=== PATIENT | female | born 1960 | race African-American/Black ===

== ENCOUNTER 2018-06-16 16:26 | Inpatient (IN) | payer OTHER ==
[2018-06-16 19:49] VITALS: BMI 30.2
--- NOTE | 2018-06-16 21:06 | HP ---
CIWA Score Nausea/Vomitin Muscle Tremors: 3 Anxiety: 2 Agitation: 2 Paroxysmal Sweats: 3 (Increased facial moisture) Orientation: 1-Uncertain about Date Tacttile Disturbances: 0-None Auditory Disturbances: 0-None Visual Disturbances: 0-None Headache: 2-Mild CIWA-Ar Total Score: 16 - Admission Criteria OASAS Guidelines: Admission for Medically Managed Detox: Requires at least one of the followin. CIWA greater than 12 2. Seizures within the past 24 hours 3. Delirium tremens within the past 24 hours 4. Hallucinations within the past 24 hours 5. Acute intervention needed for co occurring medical disorder 6. Acute intervention needed for co occurring psychiatric disorder 7. Severe withdrawal that cannot be handled at a lower level of care (continued vomiting, continued diarrhea, abnormal vital signs) requiring intravenous medication and/or fluids 8. Patient presents the following: CIWA greater than 12 Admission Criteria Met: Admission criteria met Admission ROS [facility] Chief Complaint: Here with alcohol withdrawal. Allergies/Adverse Reactions: Allergies Allergy/AdvReac Type Severity Reaction Status Date / Time No Known Allergies Allergy Verified 06/16/18 20:48 History of Present Illness: Here for detox. States free of alcohol and crack/cocaine use since 2001. States relapsed about 1 month ago after . Alcohol use began at age 13. Cocaine use began at age 22. Marijuana use began at age 13. Nicotine use began at age 13. Denies seizures, black outs, or overdoses. States recently seen by PCP and told had abnormal kidney function test and is to receive a renal ultrasound upon discharge. States hx enlarged lymph nodes on lungs. Had lung biopsy 2 years ago. States coughs all the time. States dropped (L) foot. Wears high top boots for support. (R) ankle weakness r/t fall May 2018. Past hx DM - states controlled w/ past weight loss. MHHx: Mild depression. Denies thoughts of harming self or others. Patient Name: Mateo Garner Date: 1960 Address: [address] [address] Sex: Female Rx Written Rx Dispensed Drug Quantity Days Supply Prescriber Name 01/12/2018 01/16/2018 oxycodone-acetaminophen 5-325 mg tablet 30 5 Lali Harris Exam Limitations: No Limitations - Ebola screening Have you traveled outside of the country in the last 21 days: No (N) Have you had contact with anyone from an Ebola affected area: No Have you been sick,other than usual withdrawal symptoms: No Do you have a fever: No - Review of Systems Constitutional: Changes in sleep (Difficulty falling asleep.) EENT: reports: Blurred Vision, Dental Problems (Wears dentures. Chews and swallows ok.) Respiratory: reports: Cough (Chronic cough.), SOB with Exertion Cardiac: reports: No Symptoms Reported GI: reports: Diarrhea (light brown, watery diarrhea), Nausea, Indigestion (Hx acid reflux states takes before breakfast.) : reports: No Symptoms Reported (Denies burning, pain, or blood w/ urination. States told had abnorma KFT's.) Musculoskeletal: reports: Back Pain (Intermittent LBP r/t slipped disc x 2 years. Pain is positional when lays down on back. Denies pain at this time. States gabapentin helps w/ pain.), Other (States dropped (L) foot. Wears high top boots for support. (R) ankle weakness r/t fall 1 month ago.) Integumentary: reports: No Symptoms Reported Neuro: reports: Headache (Slight), Numbness (Of toes x 2 months. Takes gabapentin 800 mg PO daily, which causes the numbness.) Endocrine: reports: Increased Thirst Hematology: reports: No Symptoms Reported Psychiatric: reports: Judgement Intact, Mood/Affect Appropiate, Agitated, Anxious, Depressed (Denies thoughts of harming self or others.), other ( Oriented to month and year. Unsure of day) Patient History - Patient Medical History Hx Asthma: Yes Hx Chronic Obstructive Pulmonary Disease (COPD): No Hx Cardiac Disorders: No Hx Hypertension: No HX Cerebrovascular Accident: No Hx Seizures: No Hx Diabetes: No Hx Gastrointestinal Disorders: No Hx Genitourinary Disorders: No Hx Sexually Transmitted Disorders: No Hx Renal Disease (ESRD): No Hx Human Immunodeficiency Virus (HIV): No (NEGATIVE SCREEN) Hx Hepatitis C: No Hx Depression: Yes Hx Suicide Attempt: No Hx Schizophrenia: Yes - Patient Surgical History Past Surgical History: No Hx Neurologic Surgery: No Hx Cataract Extraction: No Hx Cardiac Surgery: No Hx Lung Surgery: No Hx Breast Surgery: No Hx Breast Biopsy: No Hx Abdominal Surgery: No Hx Appendectomy: No Hx Cholecystectomy: No Hx Genitourinary Surgery: No Hx Section: Yes (in 1979) Hx Orthopedic Surgery: No Hx Hysterectomy: Yes (PARTIAL IN 1985) Other Surgical History: partial hysterectomy in 1985 Anesthesia Reaction: No - PPD History Previous Implant?: Yes Documented Results: Negative w/proof Implanted On Prior [facility] Admission?: Yes Date: 09/05/11 PPD to be Administered?: Yes - Reproductive History Patient is a Female of Child Bearing Age (11 -55 yrs old): Yes Last Menstrual Period: 04/28/85 Patient : No - Smoking Cessation Smoking history: Current every day smoker Have you smoked in the past 12 months: Yes Aproximately how many cigarettes per day: 10 Hx Chewing Tobacco Use: No Initiated information on smoking cessation: Yes 'Breaking Loose' booklet given: 06/16/18 - Substance & Tx. History Hx Alcohol Use: Yes Hx Substance Use: Yes Substance Use Type: Alcohol Hx Substance Use Treatment: Yes (detox) - Substances Abused Alcohol Route: Oral Frequency: Daily Amount used: 1 BEER + 1 PINT vODKA Age of first use: 13 Date of Last Use: 06/15/18 Crack Route: Smoking Frequency: 3-6 times per week Amount used: $600 Age of first use: 22 Date of Last Use: 06/16/18 Marijuana/Hashish Route: Smoking Frequency: Daily Amount used: 1 BAG Age of first use: 13 Date of Last Use: 06/16/18 Admission Physical Exam [facility] - Vital Signs Vital Signs: Vital Signs - 24 hr 06/16/18 06/16/18 19:47 19:53 Temperature 96.8 F L 96.8 F L Pulse Rate 77 77 Respiratory 18 18 Rate Blood Pressure 146/100 146/100 - Physical General Appearance: Yes: Nourished, Mild Distress, Tremorous, Sweating, Anxious HEENTM: Yes: EOMI, Hearing grossly Normal, Normocephalic, Normal Voice, ALEXANDRA, Pharynx Normal Respiratory: Yes: Lungs Clear, Normal Breath Sounds, No Respiratory Distress Neck: Yes: No masses,lesions,Nodules, Supple Breast: Yes: Breast Exam Deferred Cardiology: Yes: Regular Rhythm, Regular Rate, S1, S2 Abdominal: Yes: Non Tender, Soft, Increased Bowel Sounds Genitourinary: Yes: Within Normal Limits Back: Yes: Normal Inspection Musculoskeletal: Yes: Joint swelling (Slight swelling (R) outer malleolus w/ tenderness. FWB. No increased warmth/ecchimosis.) Extremities: Yes: Normal Capillary Refill, Normal Range of Motion, Tremors ( Mild tremors) Neurological: Yes: rn women services II-XII NML intact, Alert, Motor Strength 5/5, Normal Mood /Affect Integumentary: Yes: Normal Color, Warm, Diaphoresis (Increased facial moisture) - Diagnostic (1) Alcohol dependence with uncomplicated withdrawal Current Visit: Yes Status: Acute (2) Cannabis dependence, uncomplicated Current Visit: Yes Status: Chronic (3) Cocaine dependence, uncomplicated Current Visit: Yes Status: Chronic (4) Nicotine dependence, uncomplicated Current Visit: Yes Status: Chronic Qualifiers: Nicotine product type: cigarettes Qualified Code(s): F17.210 - Nicotine dependence, cigarettes, uncomplicated (5) Essential (primary) hypertension Current Visit: Yes Status: Acute (6) GERD (gastroesophageal reflux disease) Current Visit: Yes Status: Chronic Qualifiers: Esophagitis presence: without esophagitis Qualified Code(s): K21.9 - Gastro -esophageal reflux disease without esophagitis (7) Asthma Current Visit: Yes Status: Chronic Qualifiers: Asthma severity: mild Asthma persistence: unspecified Asthma complication type: uncomplicated Qualified Code(s): J45.909 - Unspecified asthma, uncomplicated (8) Neuropathy Current Visit: Yes Status: Chronic (9) Gait abnormality Current Visit: Yes Status: Chronic Comment: r/t (L) dropped foot and (R) ankle weakness Cleared for Admission [facility] - Detox or Rehab [facility] Level of Care: Medically Managed Detox Regimen/Protocol: Librium S Breath Alcohol Content Breath Alcohol Content: 0 Urine Pregancy Test - Result Urine Test Results: Negative - NO Line Present Urine Drug Screen - Results Drug Screen Negative: No Urine Drug Screen Results: THC-Marijuana, GLADYS-Cocaine Inpatient Rehab Admission - Rehab Decision to Admit Inpatient rehab admission?: No
[2018-06-16] MEDS ORDERED: ACETAMINOPHEN 325 MG TABLET (FP) PO PRN ×2 (22:13)
[2018-06-16] MEDS ORDERED: hydrOXYzine PAMOATE 25 MG CAPSULE (FP) PO PRN (22:13)
[2018-06-16] MEDS ORDERED: chlordiazePOXIDE HCL 10 MG CAPSULE PO PRN (22:13)
[2018-06-16] MEDS ORDERED: METHOCARBAMOL 500 MG TABLET PO PRN (22:13)
[2018-06-16] MEDS ORDERED: chlordiazePOXIDE HCL 25 MG CAPSULE PO ONE (22:13)
[2018-06-16] MEDS ORDERED: guaiFENesin 200 MG/10 ML 10 ML UNIT-DOSE CUPS PO PRN (22:13)
[2018-06-16] MEDS ORDERED: MENTHOL/PHENOL 1 EACH UD MM PRN (22:13)
[2018-06-16] MEDS ORDERED: IBUPROFEN 400 MG TABLET (FP) PO PRN (22:13)
[2018-06-16] MEDS ORDERED: MAGNESIUM HYDROX 2400MG/30ML ORAL SUSPENSION 30 ML CUP PO PRN (22:13)
[2018-06-16] MEDS ORDERED: BISMUTH SUBSALICYLATE 524 MG/30 ML UD PO PRN (22:13)
[2018-06-16] MEDS ORDERED: MAG HYDROX/AL HYDROX/SIMETH 30 ML UNIT-DOSE CUP PO PRN (22:13)
[2018-06-16] MEDS ORDERED: MAGNESIUM CITRATE 300 ML BOTTLE PO PRN (22:13)
[2018-06-16] MEDS ORDERED: ALBUTEROL SO4 0.083% IH SOL 2.5 MG/3 ML VIAL.NEB. NEB PRN (23:15)
[2018-06-16] MEDS: chlordiazePOXIDE HCL 25 MG CAPSULE PO SCH (23:46)
[2018-06-17] MEDS: chlordiazePOXIDE HCL 25 MG CAPSULE PO SCH ×2 (06:07→12:41)
[2018-06-17] MEDS: PANTOPRAZOLE 40 MG TABLET (FP) PO SCH (07:18)
[2018-06-17] MEDS: LOSARTAN POTASSIUM 25 MG TABLET PO SCH (10:39)
[2018-06-17 10:41] LABS: HEMATOCRIT 35.2 % (32.4-45.2); HEMOGLOBIN 11.6 GM/dL (10.7-15.3); MCH 31.3 pg (25.7-33.7); MCHC 32.9 g/dl (32.0-36.0); MEAN PLT VOLUME 11.1 fl (7.5-11.1); PLATELET COUNT 212 K/MM3 (134-434); RBC 3.71 M/mm3 (3.60-5.2); RDW 15.1 % (11.6-15.6); WHITE BLOOD COUNT 7.5 K/mm3 (4.0-10.0)
[2018-06-17] MEDS: NICOTINE 14 MG/24 HOURS TOPICAL PATCH TD SCH (10:45)
[2018-06-17] MEDS: PRENATAL VITAMINS W/ FOLIC ACID TABLET (FP) PO SCH (10:46)
[2018-06-17] MEDS: ASPIRIN COATED 81 MG TABLET.EC PO SCH (10:46)
[2018-06-17 11:07] LABS: ALBUMIN 3.2 g/dl (3.4-5.0); ALK PHOS 105 U/L (45-117); ANION GAP 8 MMOL/L (8-16); BILIRUBIN,TOTAL 0.9 mg/dL (0.2-1); BLOOD UREA NITROGEN 25 mg/dL (7-18); CALCIUM 8.9 mg/dL (8.5-10.1); CHLORIDE 111 mmol/L (98-107); CO2 24 mmol/L (21-32); CREATININE 1.5 mg/dL (0.55-1.3); GLUCOSE,RANDOM 109 mg/dL (74-106); POTASSIUM 4.4 mmol/L (3.5-5.1); SGOT/AST 10 U/L (15-37); SGPT/ALT 12 U/L (13-61); SODIUM 143 mmol/L (136-145)
--- NOTE | 2018-06-17 13:08 | EKG ---
Test Reason : Blood Pressure : / mmHG Vent. Rate : 074 BPM Atrial Rate : 074 BPM P-R Int : 120 ms QRS Dur : 088 ms QT Int : 434 ms P-R-T Axes : 059 069 072 degrees QTc Int : 481 ms NORMAL SINUS RHYTHM BIATRIAL ENLARGEMENT PROLONGED QT ABNORMAL ECG NO PREVIOUS ECGS AVAILABLE Confirmed by MD VIVIENNE, NATACHA ([id number]) on 06/17/2018 1:08:29 PM Referred By: Confirmed By:NATACHA PALAFOX MD
[2018-06-17] MEDS: PATIENT'S OWN MEDICATION (NON-FORMULARY) (Gabapentin [Gabapentin] 800 MG) PO SCH ×3 (13:27→22:32)
[2018-06-17] MEDS: PATIENT'S OWN MEDICATION (NON-FORMULARY) (Omeprazole [Omeprazole] 40 MG) PO SCH (13:27)
--- NOTE | 2018-06-17 16:07 | PN ---
S CIWA - CIWA Score Nausea/Vomitin Muscle Tremors: 3 Anxiety: 3 Agitation: 2 Paroxysmal Sweats: No Perspiration Orientation: 0-Oriented Tacttile Disturbances: 0-None Auditory Disturbances: 1-Very Mild Visual Disturbances: 3-Moderate Sensitivity Headache: 0-None Present CIWA-Ar Total Score: 15 BHS Progress Note (SOAP) Subjective: Tremors, Nausea, Anxious. Objective: PATIENT A & O X 3, OBSERVED AMBULATING ON UNIT. IN NO ACUTE DISTRESS. 06/17/18 16:03 Vital Signs Temperature 98.4 F 06/17/18 14:00 Pulse Rate 74 06/17/18 14:00 Respiratory Rate 18 06/17/18 14:00 Blood Pressure 139/93 06/17/18 14:00 O2 Sat by Pulse Oximetry (%) Laboratory Tests 06/17/18 06/17/18 06/17/18 07:50 07:50 07:50 WBC 7.5 RBC 3.71 Hgb 11.6 Hct 35.2 MCV 95.0 MCH 31.3 MCHC 32.9 RDW 15.1 Plt Count 212 MPV 11.1 Sodium 143 Potassium 4.4 Chloride 111 H Carbon Dioxide 24 Anion Gap 8 BUN 25 H Creatinine 1.5 H Creat Clearance w eGFR 36.05 Random Glucose 109 H Calcium 8.9 Total Bilirubin 0.9 AST 10 L ALT 12 L Alkaline Phosphatase 105 Total Protein 6.0 L Albumin 3.2 L RPR Titer Nonreactive LABS NOTED. Assessment: 06/17/18 16:04 WITHDRAWAL SYMPTOMS. HYPERTENSION. Plan: CONTINUE DETOX. INCREASE DAILY PO FLUID INTAKE. D/C IBUPROFEN AND MAGNESIUM-CONTAINING MEDS. FOR ABNORMAL ADMISSION RENAL LAB VALUES. PATIENT REPORTS THAT HER INTERNAL WHOLESALER (DR. NORMAN) THAT "SHE IS NO LONGER DIABETIC" AND THAT HE INFORMED HER THAT SHE NO LONGER HAD TO TAKE MEDICATION FOR DM. AT PATIENT'S REQUEST, DIET CHANGED FROM LOW NA / LOW CONCENTRATED SWEETS CHANGED TO LOW NA ONLY.
[2018-06-17] MEDS: THIAMINE HCL 100 MG TABLET (FP) PO SCH (22:32)
[2018-06-17] MEDS: chlordiazePOXIDE 5 MG CAPSULE PO SCH (22:32)
[2018-06-17] MEDS: MELATONIN 5 MG TABLETS PO PRN (22:32)
[2018-06-18] MEDS: chlordiazePOXIDE 5 MG CAPSULE PO SCH ×2 (05:57→13:51)
[2018-06-18] MEDS: PATIENT'S OWN MEDICATION (NON-FORMULARY) (Gabapentin [Gabapentin] 800 MG) PO SCH ×3 (05:57→22:27)
[2018-06-18] MEDS: PATIENT'S OWN MEDICATION (NON-FORMULARY) (Omeprazole [Omeprazole] 40 MG) PO SCH (05:57)
[2018-06-18] MEDS: PANTOPRAZOLE 40 MG TABLET (FP) PO SCH (06:35)
[2018-06-18] MEDS: ASPIRIN COATED 81 MG TABLET.EC PO SCH (10:08)
[2018-06-18] MEDS: LOSARTAN POTASSIUM 25 MG TABLET PO SCH (10:08)
[2018-06-18] MEDS: PRENATAL VITAMINS W/ FOLIC ACID TABLET (FP) PO SCH (10:09)
[2018-06-18] MEDS: NICOTINE 14 MG/24 HOURS TOPICAL PATCH TD SCH (10:09)
--- NOTE | 2018-06-18 12:29 | PN ---
[facility] CIWA - CIWA Score Nausea/Vomitin-No Nausea/No Vomiting Muscle Tremors: 3 Anxiety: 2 Agitation: 2 Paroxysmal Sweats: 1-Minimal Palms Moist Orientation: 1-Uncertain about Date Tacttile Disturbances: 0-None Auditory Disturbances: 0-None Visual Disturbances: 0-None Headache: 2-Mild CIWA-Ar Total Score: 11 S Progress Note (SOAP) Subjective: tremor sweating anxiety trouble sleep at night Objective: 06/18/18 12:30 Vital Signs Temperature 98.2 F 06/18/18 09:57 Pulse Rate 71 06/18/18 09:57 Respiratory Rate 18 06/18/18 09:57 Blood Pressure 170/99 06/18/18 09:57 O2 Sat by Pulse Oximetry (%) Laboratory Last Values WBC 7.5 K/mm3 (4.0-10.0) 06/17/18 07:50 RBC 3.71 M/mm3 (3.60-5.2) 06/17/18 07:50 Hgb 11.6 GM/dL (10.7-15.3) 06/17/18 07:50 Hct 35.2 % (32.4-45.2) 06/17/18 07:50 MCV 95.0 fl (80-96) 06/17/18 07:50 MCH 31.3 pg (25.7-33.7) 06/17/18 07:50 MCHC 32.9 g/dl (32.0-36.0) 06/17/18 07:50 RDW 15.1 % (11.6-15.6) 06/17/18 07:50 Plt Count 212 K/MM3 (134-434) 06/17/18 07:50 MPV 11.1 fl (7.5-11.1) 06/17/18 07:50 Sodium 143 mmol/L (136-145) 06/17/18 07:50 Potassium 4.4 mmol/L (3.5-5.1) 06/17/18 07:50 Chloride 111 mmol/L (98-107) H 06/17/18 07:50 Carbon Dioxide 24 mmol/L (21-32) 06/17/18 07:50 Anion Gap 8 MMOL/L (8-16) 06/17/18 07:50 BUN 25 mg/dL (7-18) H 06/17/18 07:50 Creatinine 1.5 mg/dL (0.55-1.3) H 06/17/18 07:50 Creat Clearance w eGFR 36.05 (>60) 06/17/18 07:50 Random Glucose 109 mg/dL (74-106) H 06/17/18 07:50 Calcium 8.9 mg/dL (8.5-10.1) 06/17/18 07:50 Total Bilirubin 0.9 mg/dL (0.2-1) 06/17/18 07:50 AST 10 U/L (15-37) L 06/17/18 07:50 ALT 12 U/L (13-61) L 06/17/18 07:50 Alkaline Phosphatase 105 U/L (45-117) 06/17/18 07:50 Total Protein 6.0 g/dl (6.4-8.2) L 06/17/18 07:50 Albumin 3.2 g/dl (3.4-5.0) L 06/17/18 07:50 RPR Titer Nonreactive (NONREACTIVE) 06/17/18 07:50 lab noted hypertension 06/18/18 12:34 clonidin prn Assessment: 06/18/18 12:34 mild withdrawal sx Laboratory Last Values WBC 7.5 K/mm3 (4.0-10.0) 06/17/18 07:50 RBC 3.71 M/mm3 (3.60-5.2) 06/17/18 07:50 Hgb 11.6 GM/dL (10.7-15.3) 06/17/18 07:50 Hct 35.2 % (32.4-45.2) 06/17/18 07:50 MCV 95.0 fl (80-96) 06/17/18 07:50 MCH 31.3 pg (25.7-33.7) 06/17/18 07:50 MCHC 32.9 g/dl (32.0-36.0) 06/17/18 07:50 RDW 15.1 % (11.6-15.6) 06/17/18 07:50 Plt Count 212 K/MM3 (134-434) 06/17/18 07:50 MPV 11.1 fl (7.5-11.1) 06/17/18 07:50 Sodium 143 mmol/L (136-145) 06/17/18 07:50 Potassium 4.4 mmol/L (3.5-5.1) 06/17/18 07:50 Chloride 111 mmol/L (98-107) H 06/17/18 07:50 Carbon Dioxide 24 mmol/L (21-32) 06/17/18 07:50 Anion Gap 8 MMOL/L (8-16) 06/17/18 07:50 BUN 25 mg/dL (7-18) H 06/17/18 07:50 Creatinine 1.5 mg/dL (0.55-1.3) H 06/17/18 07:50 Creat Clearance w eGFR 36.05 (>60) 06/17/18 07:50 Random Glucose 109 mg/dL (74-106) H 06/17/18 07:50 Calcium 8.9 mg/dL (8.5-10.1) 06/17/18 07:50 Total Bilirubin 0.9 mg/dL (0.2-1) 06/17/18 07:50 AST 10 U/L (15-37) L 06/17/18 07:50 ALT 12 U/L (13-61) L 06/17/18 07:50 Alkaline Phosphatase 105 U/L (45-117) 06/17/18 07:50 Total Protein 6.0 g/dl (6.4-8.2) L 06/17/18 07:50 Albumin 3.2 g/dl (3.4-5.0) L 06/17/18 07:50 RPR Titer Nonreactive (NONREACTIVE) 06/17/18 07:50 lab noted Plan: continue detox
[2018-06-18] MEDS ORDERED: cloNIDine HCL 0.1 MG TABLET PO PRN (12:32)
[2018-06-18] MEDS ORDERED: chlordiazePOXIDE HCL 10 MG CAPSULE PO PRN (21:00)
[2018-06-18] MEDS: THIAMINE HCL 100 MG TABLET (FP) PO SCH (22:26)
[2018-06-18] MEDS: chlordiazePOXIDE HCL 10 MG CAPSULE PO SCH (22:27)
[2018-06-18] MEDS: MELATONIN 5 MG TABLETS PO PRN (22:28)
[2018-06-19] MEDS: chlordiazePOXIDE HCL 10 MG CAPSULE PO SCH (05:46)
[2018-06-19] MEDS: PATIENT'S OWN MEDICATION (NON-FORMULARY) (Omeprazole [Omeprazole] 40 MG) PO SCH (05:47)
[2018-06-19] MEDS: PATIENT'S OWN MEDICATION (NON-FORMULARY) (Gabapentin [Gabapentin] 800 MG) PO SCH (05:47)
[2018-06-19 06:17] VITALS: TEMP 98.4
[2018-06-19 09:11] VITALS: BP 148/103; PULSE 85
[2018-06-19] MEDS: PRENATAL VITAMINS W/ FOLIC ACID TABLET (FP) PO SCH (10:27)
[2018-06-19] MEDS: LOSARTAN POTASSIUM 25 MG TABLET PO SCH (10:27)
[2018-06-19] MEDS: NICOTINE 14 MG/24 HOURS TOPICAL PATCH TD SCH (10:27)
[2018-06-19] MEDS: ASPIRIN COATED 81 MG TABLET.EC PO SCH (10:27)
--- NOTE | 2018-06-19 14:21 | DS ---
[facility] Detox Discharge Summary Admission Date: 06/16/18 Discharge Date: 06/19/18 - History Present History: Alcohol Dependence Additional Comments: 57 years old female admitted on 06/16/18 for alcohol withdrawal stabilization completed detox regimen [facility] - Physical Exam Results Vital Signs: Vital Signs Temperature 98.4 F 06/19/18 09:10 Pulse Rate 85 06/19/18 09:10 Respiratory Rate 18 06/19/18 09:10 Blood Pressure 148/103 H 06/19/18 09:10 O2 Sat by Pulse Oximetry (%) Pertinent Admission Physical Exam Findings: alcohol withdrawal sx Laboratory Last Values WBC 7.5 K/mm3 (4.0-10.0) 06/17/18 07:50 RBC 3.71 M/mm3 (3.60-5.2) 06/17/18 07:50 Hgb 11.6 GM/dL (10.7-15.3) 06/17/18 07:50 Hct 35.2 % (32.4-45.2) 06/17/18 07:50 MCV 95.0 fl (80-96) 06/17/18 07:50 MCH 31.3 pg (25.7-33.7) 06/17/18 07:50 MCHC 32.9 g/dl (32.0-36.0) 06/17/18 07:50 RDW 15.1 % (11.6-15.6) 06/17/18 07:50 Plt Count 212 K/MM3 (134-434) 06/17/18 07:50 MPV 11.1 fl (7.5-11.1) 06/17/18 07:50 Sodium 143 mmol/L (136-145) 06/17/18 07:50 Potassium 4.4 mmol/L (3.5-5.1) 06/17/18 07:50 Chloride 111 mmol/L (98-107) H 06/17/18 07:50 Carbon Dioxide 24 mmol/L (21-32) 06/17/18 07:50 Anion Gap 8 MMOL/L (8-16) 06/17/18 07:50 BUN 25 mg/dL (7-18) H 06/17/18 07:50 Creatinine 1.5 mg/dL (0.55-1.3) H 06/17/18 07:50 Creat Clearance w eGFR 36.05 (>60) 06/17/18 07:50 Random Glucose 109 mg/dL (74-106) H 06/17/18 07:50 Calcium 8.9 mg/dL (8.5-10.1) 06/17/18 07:50 Total Bilirubin 0.9 mg/dL (0.2-1) 06/17/18 07:50 AST 10 U/L (15-37) L 06/17/18 07:50 ALT 12 U/L (13-61) L 06/17/18 07:50 Alkaline Phosphatase 105 U/L (45-117) 06/17/18 07:50 Total Protein 6.0 g/dl (6.4-8.2) L 06/17/18 07:50 Albumin 3.2 g/dl (3.4-5.0) L 06/17/18 07:50 RPR Titer Nonreactive (NONREACTIVE) 06/17/18 07:50 lab noted - Treatment Hospital Course: Detox Protocol Followed, Detoxed Safely, Responded well, Discharged Condition Good, Rehab Referral Accepted Patient has Accepted a [facility] Referral to: [facility] - Medication Discharge Medications: Ambulatory Orders Aspirin Coated [Ecotrin -] 81 mg PO DAILY 09/03/11 Fluticasone/Salmeterol [Advair 250-50 Diskus] 1 each IH BID 09/03/11 Omeprazole 40 mg PO DAILY 09/03/11 Gabapentin 800 mg PO TID 06/16/18 Albuterol Sulfate Inhaler - [Ventolin HFA Inhaler -] 2 inh IH Q6H PRN #1 inhaler 06/18/18 Losartan Potassium 25 mg PO DAILY #30 tablet 06/18/18 - Diagnosis (1) Alcohol dependence with uncomplicated withdrawal Status: Acute (2) Essential (primary) hypertension Status: Chronic (3) Asthma Status: Chronic Qualifiers: Asthma severity: mild Asthma persistence: intermittent Asthma complication type: uncomplicated Qualified Code(s): J45.20 - Mild intermittent asthma, uncomplicated (4) GERD (gastroesophageal reflux disease) Status: Chronic Qualifiers: Esophagitis presence: without esophagitis Qualified Code(s): K21.9 - Gastro -esophageal reflux disease without esophagitis (5) Neuropathy Status: Chronic (6) Nicotine dependence, uncomplicated Status: Acute Qualifiers: Nicotine product type: cigarettes Qualified Code(s): F17.210 - Nicotine dependence, cigarettes, uncomplicated - AMA Did Patient Leave Against Medical Advice: No
== END 2018-06-19 12:33 | disposition other institution (70) | DRG 897 ==
LOC: YASAS 16:26 → Y3N 23:04
PROVIDERS: ADMIT Surgery; ATTEND Surgery
PROC: HZ2ZZZZ Detoxification Services for Substance Abuse Treatment (ICD-10-PCS; principal; 2018-06-16)
DX: F10.20 Alcohol dependence, uncomplicated (principal); F14.20 Cocaine dependence, uncomplicated; F12.20 Cannabis dependence, uncomplicated; F17.210 Nicotine dependence, cigarettes, uncomplicated; I10 Essential (primary) hypertension; J45.20 Mild intermittent asthma, uncomplicated; K21.9 Gastro-esophageal reflux disease without esophagitis; G62.9 Polyneuropathy, unspecified; R26.89 Other abnormalities of gait and mobility; M21.371 Foot drop, right foot
CPT/HCPCS: 36415; 80053; 85027; 86593; 93005; 93010; J0735

== ENCOUNTER 2018-06-19 12:04 | Inpatient (IN) | payer OTHER ==
[2018-06-19] MEDS ORDERED: BACITRACIN 0.9 GM PACKET TP ONE (13:49)
[2018-06-19] MEDS ORDERED: MAGNESIUM HYDROX 2400MG/30ML ORAL SUSPENSION 30 ML CUP PO PRN (14:14)
[2018-06-19] MEDS ORDERED: MAG HYDROX/AL HYDROX/SIMETH 30 ML UNIT-DOSE CUP PO PRN (14:14)
[2018-06-19] MEDS ORDERED: MENTHOL/PHENOL 1 EACH UD MM PRN (14:14)
[2018-06-19] MEDS ORDERED: P-EPHED 60MG/TRIPROLIDI 2.5MG TABLET PO PRN (14:14)
[2018-06-19] MEDS ORDERED: NICOTINE POLACRILEX 2 MG GUM BUC PRN (14:14)
[2018-06-19] MEDS ORDERED: IBUPROFEN 400 MG TABLET (FP) PO PRN (14:14)
[2018-06-19] MEDS ORDERED: MAGNESIUM CITRATE 300 ML BOTTLE PO PRN (14:14)
[2018-06-19] MEDS ORDERED: ACETAMINOPHEN 325 MG TABLET (FP) PO PRN (14:14)
[2018-06-19] MEDS ORDERED: guaiFENesin 200 MG/10 ML 10 ML UNIT-DOSE CUPS PO PRN (14:14)
[2018-06-19] MEDS ORDERED: LOPERAMIDE HCL 2 MG CAPSULE PO PRN (14:14)
--- NOTE | 2018-06-19 14:14 | HP ---
[facility] Rehab Assess/Revision - Admission History Admitted to Rehab from: [facility] Date of Admission to Rehab: 06/19/18 - Vital signs Vital Signs: Vital Signs Period Temp Pulse Resp BP Sys/Castillo Pulse Ox Last 24 Hr 97.4 F 80 18 132/87 - Findings Detox History & Physical reviewed: Yes Concur with findings: Yes Comments/Additional Findings: transferred from detox to rehab admission as per protocol Inpatient Rehab Admission - Rehab Decision to Admit Inpatient rehab admission?: Yes - Initial Determination Are CD services needed?: Yes Free of communicable disease: Yes Not in need of hospitalization: Yes - Rehab Admission Criteria Previous failed treatment: Yes Poor recovery environment: Yes Comorbidities: Yes Lacks judgement: No Patient is meeting Inpatient Rehab admission criteria:: Yes
[2018-06-19] MEDS ORDERED: PT OWN MED DRAWER 7, Y5N ONE ×2 (19:58→21:11)
[2018-06-19] MEDS: THIAMINE HCL 100 MG TABLET (FP) PO SCH (21:09)
[2018-06-19] MEDS: PATIENT'S OWN MEDICATION (NON-FORMULARY) (Gabapentin [Gabapentin] 800 MG) PO SCH (21:11)
[2018-06-19] MEDS: MELATONIN 5 MG TABLETS PO PRN (21:11)
[2018-06-19] MEDS ORDERED: RANITIDINE HCL 150 MG TABLET (FP) PO SCH (22:00)
[2018-06-20] MEDS ORDERED: PT OWN MED DRAWER 7, Y5N ONE ×5 (03:23→20:12)
[2018-06-20] MEDS: PATIENT'S OWN MEDICATION (NON-FORMULARY) (Gabapentin [Gabapentin] 800 MG) PO SCH ×3 (06:42→21:18)
[2018-06-20] MEDS ORDERED: PANTOPRAZOLE 40 MG TABLET (FP) PO ONE (07:15)
[2018-06-20] MEDS ORDERED: LOSARTAN POTASSIUM 25 MG TABLET PO SCH (10:00)
[2018-06-20] MEDS ORDERED: ASPIRIN COATED 81 MG TABLET.EC PO SCH (10:00)
[2018-06-20] MEDS: PRENATAL VITAMINS W/ FOLIC ACID TABLET (FP) PO SCH (10:01)
[2018-06-20] MEDS: NICOTINE 14 MG/24 HOURS TOPICAL PATCH TD PRN (10:02)
--- NOTE | 2018-06-20 11:52 | PN ---
[facility] Progress Note Note: PT REQUESTING HER BP MED AND ASPIRIN DOSING TIME CHANGED TO 6:00 A.M INSTEAD OF 10:00 A.M. ALERT O X 3. NAD. OOB AMBULATING WITH STEADY GAIT. Vital Signs (72 hours) 06/19/18 06/20/18 06/20/18 12:48 00:30 03:30 Temperature 97.4 F L Pulse Rate 80 Respiratory 18 18 18 Rate Blood Pressure 132/87 06/20/18 06/20/18 07:01 09:32 Temperature 97.1 F L Pulse Rate 59 L 80 Respiratory 16 Rate Blood Pressure 153/100 151/82 DOSING TIME CHANGED PER PT REQUEST.
[2018-06-20] MEDS: THIAMINE HCL 100 MG TABLET (FP) PO SCH (21:18)
[2018-06-20] MEDS: MELATONIN 5 MG TABLETS PO PRN (21:19)
[2018-06-20] MEDS: ALBUTEROL SO4 8 GM HFA INHALER IH PRN (21:20)
[2018-06-21] MEDS ORDERED: PT OWN MED DRAWER 7, Y5N ONE ×4 (06:53→19:47)
[2018-06-21] MEDS: PATIENT'S OWN MEDICATION (NON-FORMULARY) (Omeprazole [Omeprazole] 40 MG) PO SCH (06:56)
[2018-06-21] MEDS: PATIENT'S OWN MEDICATION (NON-FORMULARY) (Gabapentin [Gabapentin] 800 MG) PO SCH ×3 (06:56→21:53)
[2018-06-21] MEDS: LOSARTAN POTASSIUM 25 MG TABLET PO SCH (06:57)
[2018-06-21] MEDS: ASPIRIN COATED 81 MG TABLET.EC PO SCH (06:57)
[2018-06-21] MEDS: ALBUTEROL SO4 8 GM HFA INHALER IH PRN (06:58)
[2018-06-21] MEDS: PRENATAL VITAMINS W/ FOLIC ACID TABLET (FP) PO SCH (09:42)
[2018-06-21] MEDS: NICOTINE 14 MG/24 HOURS TOPICAL PATCH TD PRN (09:58)
--- NOTE | 2018-06-21 11:07 | PN ---
S Progress Note Note: Client reports hx of seizure, on Kepra. Kepra 500mg BID was ordered, Kepra level also ordered.
--- NOTE | 2018-06-21 14:15 | PN ---
Deb Progress Note Note: Client believed that she was on another HTN medication. Called [facility] in [place]. Confirmed that patient is only on losartan. Advised patient of the same, and she understood and agreed.
--- NOTE | 2018-06-21 14:17 | PN ---
[facility] Progress Note (SOAP) Subjective: Lesion on right side of nose. Client states that she gets them frequently. Objective: Red, raised, central punctum. non-tender. 06/21/18 14:16 Assessment: Boil. 06/21/18 14:16 Plan: Ordered bacitracin, advised to apply with clean hands, not to squeeze boil.
--- NOTE | 2018-06-21 14:27 | PN ---
[facility] Progress Note Note: Patient reports a history of renal hypertension and decreased renal function. Also reports that PCP stated she was pre-diabetic. Advised client to decrease sugar intake and increase activity. Also: will order chemistry, U/A, and fingersticks x 3 days.
[2018-06-21] MEDS: MELATONIN 5 MG TABLETS PO PRN (21:53)
[2018-06-21] MEDS: THIAMINE HCL 100 MG TABLET (FP) PO SCH (21:53)
[2018-06-21] MEDS ORDERED: levETIRAcetam 500 MG TABLET (FP) PO SCH (22:00)
[2018-06-22] MEDS ORDERED: PT OWN MED DRAWER 7, Y5N ONE ×2 (03:27→12:59)
[2018-06-22] MEDS: ASPIRIN COATED 81 MG TABLET.EC PO SCH (06:28)
[2018-06-22] MEDS: LOSARTAN POTASSIUM 25 MG TABLET PO SCH (06:28)
[2018-06-22] MEDS: PATIENT'S OWN MEDICATION (NON-FORMULARY) (Omeprazole [Omeprazole] 40 MG) PO SCH (06:29)
[2018-06-22] MEDS: PATIENT'S OWN MEDICATION (NON-FORMULARY) (Gabapentin [Gabapentin] 800 MG) PO SCH ×3 (06:29→21:17)
[2018-06-22] MEDS: PRENATAL VITAMINS W/ FOLIC ACID TABLET (FP) PO SCH (09:06)
[2018-06-22] MEDS: NICOTINE 14 MG/24 HOURS TOPICAL PATCH TD SCH (09:06)
--- NOTE | 2018-06-22 09:55 | PN ---
S Progress Note (SOAP) Subjective: client with elevated BP on 06/20, 06/21, 06/22. Denies s/s of HTN. States she was on 2 HTN MEDS, but PCP stopped one and she does not remember the name. Objective: 06/22/18 09:55 No s/s of HTN, however Bp elevated. 06/22/18 09:56 Vital Signs (72 hours) 06/19/18 06/20/18 06/20/18 12:48 00:30 03:30 Temperature 97.4 F L Pulse Rate 80 Respiratory 18 18 18 Rate Blood Pressure 132/87 06/20/18 06/20/18 06/21/18 07:01 09:32 00:30 Temperature 97.1 F L Pulse Rate 59 L 80 Respiratory 16 18 Rate Blood Pressure 153/100 151/82 06/21/18 06/21/18 06/21/18 03:30 07:45 10:00 Temperature 97.8 F Pulse Rate 69 122 H Respiratory 18 18 Rate Blood Pressure 155/98 123/86 06/22/18 06/22/18 06/22/18 03:30 07:17 09:22 Temperature 97.8 F Pulse Rate 69 84 Respiratory 18 18 Rate Blood Pressure 167/95 153/83 Assessment: 06/22/18 09:55 HTN Plan: Started on HCTZ 12.5 mg. Instructed RN to check BP 1 hour after administration.
--- NOTE | 2018-06-22 09:59 | PN ---
[facility] Progress Note Note: right foot swelling. NO s/s of infection. Non-tender to palpation, temperature equal to left, no redness. HCTZ may reduce swelling. Advised to elevate foot and reduce salt intake.
[2018-06-22] MEDS ORDERED: BACITRACIN 15 GM TUBE TOPICAL OINTMENT TP SCH (10:00)
[2018-06-22] MEDS: BACITRACIN 0.9 GM PACKET TP SCH (10:35)
[2018-06-22] MEDS: HYDROCHLOROTHIAZIDE 12.5 MG CAPSULE (FP) PO SCH (10:35)
[2018-06-22 11:14] LABS: EPI CELLS 1.8 /HPF (FEW); HYALINE CASTS 0 /hpf (NEGATIVE); URINE APPEARANCE CLEAR; URINE BACTERIA 45.54 /hpf (NEGATIVE); URINE BILIRUBIN NEGATIVE (<2.0 mg/dL); URINE COLOR YELLOW; URINE GLUCOSE (UA) NEGATIVE (NEGATIVE); URINE KETONE NEGATIVE (NEGATIVE); URINE LEUK ESTERASE NEGATIVE (NEGATIVE); URINE NITRITE NEGATIVE (NEGATIVE); URINE PROTEIN NEGATIVE (NEGATIVE); URINE RBC 0 /hpf (0-3); URINE UROBILINOGEN 0.2 mg/dL (0.2-1.0); URINE WBC 1 /hpf (3-5)
[2018-06-22 11:26] LABS: ANION GAP 5 MMOL/L (8-16); BLOOD UREA NITROGEN 36 mg/dL (7-18); CALCIUM 9.4 mg/dL (8.5-10.1); CHLORIDE 108 mmol/L (98-107); CO2 27 mmol/L (21-32); CREATININE 1.3 mg/dL (0.55-1.3); GLUCOSE,RANDOM 108 mg/dL (74-106); POTASSIUM 4.8 mmol/L (3.5-5.1); SODIUM 140 mmol/L (136-145)
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
[2018-06-22] MEDS: THIAMINE HCL 100 MG TABLET (FP) PO SCH (21:16)
[2018-06-22] MEDS: MELATONIN 5 MG TABLETS PO PRN (21:17)
[2018-06-22] MEDS: QUEtiapine FUMARATE 100 MG TABLET (FP) PO SCH (21:18)
[2018-06-23] MEDS: PATIENT'S OWN MEDICATION (NON-FORMULARY) (Gabapentin [Gabapentin] 800 MG) PO SCH ×3 (06:30→21:50)
[2018-06-23] MEDS: PATIENT'S OWN MEDICATION (NON-FORMULARY) (Omeprazole [Omeprazole] 40 MG) PO SCH (06:30)
[2018-06-23] MEDS: LOSARTAN POTASSIUM 25 MG TABLET PO SCH (06:30)
[2018-06-23] MEDS: ASPIRIN COATED 81 MG TABLET.EC PO SCH (06:30)
[2018-06-23] MEDS: PRENATAL VITAMINS W/ FOLIC ACID TABLET (FP) PO SCH (10:36)
[2018-06-23] MEDS: NICOTINE 14 MG/24 HOURS TOPICAL PATCH TD SCH (10:36)
[2018-06-23] MEDS: HYDROCHLOROTHIAZIDE 12.5 MG CAPSULE (FP) PO SCH (10:36)
[2018-06-23] MEDS: BACITRACIN 0.9 GM PACKET TP SCH (10:36)
[2018-06-23] MEDS: ALBUTEROL SO4 8 GM HFA INHALER IH PRN (10:37)
[2018-06-23] MEDS ORDERED: cloNIDine HCL 0.1 MG TABLET PO ONE ×2 (13:10→14:45)
[2018-06-23] MEDS ORDERED: ALBUTEROL SO4 0.083% IH SOL 2.5 MG/3 ML VIAL.NEB. NEB PRN (14:23)
[2018-06-23] MEDS ORDERED: PT OWN MED DRAWER 7, Y5N ONE (14:43)
--- NOTE | 2018-06-23 15:01 | PN ---
[facility] Progress Note Note: PATIENT SEEN FOR ELEVATED BLOOD PRESSURE. PATIENT CURRENTLY ON COZAAR 25MG DAILY. PATIENT REPORTS FEELING MILDLY UNSTEADY ON FEET. HAS HX OF LEFT FOOT DROP. ALSO STATES SHE HAS BEEN TREATED WITH 3 BP MEDICATIONS BY PCP DR. JENN MORRIS. PCP OFFICE CALLED AT [phone]. PATIENT'S MEDICATIONS REPORTED BY NURSE: ASA 81MG DAILY AND COZAAR 25MG DAILY. PATIENT WAS ALSO DX WITH RENAL INSUFFICIENCY AND HAS RENAL SONO PENDING. PATIENT HAS HX OF SMOKING CRACK/ COCAINE, ASTHMA AND GERD. C/O OF EPIGASTRIC CHEST PAIN BUT DENIES LEFT ARM NUMBNESS, JAW PAIN AND NAUSEA. Laboratory Tests 06/20/18 06/21/18 06/22/18 06:00 16:53 06:27 Sodium Potassium Chloride Carbon Dioxide Anion Gap BUN Creatinine Creat Clearance w eGFR POC Glucometer 142 105 Random Glucose Calcium Urine Color Urine Appearance Urine pH Ur Specific [place] Urine Protein Urine Glucose (UA) Urine Ketones Urine Blood Urine Nitrite Urine Bilirubin Urine Urobilinogen Ur Leukocyte Esterase Urine WBC (Auto) Urine RBC (Auto) Urine Casts (Auto) U Epithel Cells (Auto) Urine Bacteria (Auto) HIV 1&2 Antibody Screen Negative HIV P24 Antigen Negative 06/22/18 06/22/18 06/23/18 07:30 08:00 06:33 Sodium 140 Potassium 4.8 Chloride 108 H Carbon Dioxide 27 Anion Gap 5 L BUN 36 H Creatinine 1.3 Creat Clearance w eGFR 42.53 POC Glucometer 110 Random Glucose 108 H Calcium 9.4 Urine Color Yellow Urine Appearance Clear Urine pH 5.0 Ur Specific [place] 1.014 Urine Protein Negative Urine Glucose (UA) Negative Urine Ketones Negative Urine Blood Negative Urine Nitrite Negative Urine Bilirubin Negative Urine Urobilinogen 0.2 Ur Leukocyte Esterase Negative Urine WBC (Auto) 1 Urine RBC (Auto) 0 Urine Casts (Auto) 0 U Epithel Cells (Auto) 1.8 Urine Bacteria (Auto) 45.54 HIV 1&2 Antibody Screen HIV P24 Antigen Vital Signs (72 hours) 06/21/18 06/21/18 06/21/18 00:30 03:30 07:45 Temperature 97.8 F Pulse Rate 69 Respiratory 18 18 18 Rate Blood Pressure 155/98 06/21/18 06/22/18 06/22/18 10:00 03:30 07:17 Temperature 97.8 F Pulse Rate 122 H 69 Respiratory 18 18 Rate Blood Pressure 123/86 167/95 06/22/18 06/23/18 06/23/18 09:22 00:30 03:30 Temperature Pulse Rate 84 Respiratory 18 18 Rate Blood Pressure 153/83 06/23/18 06/23/18 06/23/18 07:33 10:00 12:22 Temperature 97.4 F L Pulse Rate 64 80 73 Respiratory 18 20 20 Rate Blood Pressure 160/108 H 166/118 H 182/136 H 06/23/18 06/23/18 13:00 14:11 Temperature 97.9 F Pulse Rate 85 91 H Respiratory 18 22 H Rate Blood Pressure 170/100 169/107 H PE: ALERT AND ORIENTED X 3 SKIN WARM AND DRY +PERRLA, EOMS INTACT BL NO FACIAL DROOPING OR WEAKNESS NOTED CAR S1S2 RESP CTA BL O2 SATS 98% EXT FULL ROM, LEFT FOOT DROP A/P; ELEVATED BP RENAL INSUFFICIENCY WILL ORDER CLONIDINE 0.1MG X 2 DOSES CONTINUE COZAAR ORDERED REPEAT CMP 06/27/18 EKG NOW: SHOWS NSR ALBUTEROL INHALER ADDED TO REGIMEN FOR SOB CONTINUE TO MONITOR CLINICALLY
[2018-06-23] MEDS: THIAMINE HCL 100 MG TABLET (FP) PO SCH (21:49)
[2018-06-23] MEDS: QUEtiapine FUMARATE 100 MG TABLET (FP) PO SCH (21:50)
[2018-06-23] MEDS: MELATONIN 5 MG TABLETS PO PRN (21:50)
[2018-06-24] MEDS ORDERED: PT OWN MED DRAWER 7, Y5N ONE ×2 (03:24→07:47)
[2018-06-24] MEDS: PATIENT'S OWN MEDICATION (NON-FORMULARY) (Omeprazole [Omeprazole] 40 MG) PO SCH (06:49)
[2018-06-24] MEDS: LOSARTAN POTASSIUM 25 MG TABLET PO SCH (06:49)
[2018-06-24] MEDS: PATIENT'S OWN MEDICATION (NON-FORMULARY) (Gabapentin [Gabapentin] 800 MG) PO SCH ×3 (06:49→21:01)
[2018-06-24] MEDS: ASPIRIN COATED 81 MG TABLET.EC PO SCH (06:49)
[2018-06-24] MEDS: ALBUTEROL SO4 8 GM HFA INHALER IH PRN (06:50)
[2018-06-24] MEDS ORDERED: LISINOPRIL 20 MG TABLET (FP) PO ONE (07:24)
--- NOTE | 2018-06-24 07:37 | PN ---
[facility] Progress Note Note: ASKED TO SEE PATIENT FOR UNCONTROLLED B/P. CLIENT REPORTS HX/O OF HTN BUT NON COMPLAINT WITH MED MGMT FOR OVER A MONTH AFTER HUSBANDS . REPORTS ALL MEDS WAS DC'D BY PCP NOT SURE WHICH ONES SHE WAS ON. RECENTLY RESTARTED ON COZAAR BY HER PCP DUE TO SOME RENAL ISSUES. DENIES C.P., DIZZINESS, VISUAL DISTURBANCES. C /O INTERMITTENT SOB BUT FEELS RELATED TO HX/O ASTHMA IT IS RELIEVED WITH INHALER PRN. CLIENT SEEN IN PROPELLING SELF W/O DIFFICULTY A/O X3 NAD Vital Signs - 24 hr 06/23/18 06/23/18 06/23/18 10:00 12:22 13:00 Temperature Pulse Rate 80 73 85 Respiratory 20 20 18 Rate Blood Pressure 166/118 H 182/136 H 170/100 06/23/18 06/23/18 06/23/18 14:11 15:58 21:44 Temperature 97.9 F Pulse Rate 91 H 82 90 Respiratory 22 H 18 Rate Blood Pressure 169/107 H 143/88 152/88 06/24/18 06/24/18 06/24/18 00:30 03:30 07:32 Temperature 97.4 F L Pulse Rate 70 Respiratory 18 18 18 Rate Blood Pressure 161/103 H Laboratory Tests 06/20/18 06/21/18 06/22/18 06:00 16:53 06:27 Sodium Potassium Chloride Carbon Dioxide Anion Gap BUN Creatinine Creat Clearance w eGFR POC Glucometer 142 105 Random Glucose Calcium Urine Color Urine Appearance Urine pH Ur Specific [place] Urine Protein Urine Glucose (UA) Urine Ketones Urine Blood Urine Nitrite Urine Bilirubin Urine Urobilinogen Ur Leukocyte Esterase Urine WBC (Auto) Urine RBC (Auto) Urine Casts (Auto) U Epithel Cells (Auto) Urine Bacteria (Auto) HIV 1&2 Antibody Screen Negative HIV P24 Antigen Negative 06/22/18 06/22/18 06/23/18 07:30 08:00 06:33 Sodium 140 Potassium 4.8 Chloride 108 H Carbon Dioxide 27 Anion Gap 5 L BUN 36 H Creatinine 1.3 Creat Clearance w eGFR 42.53 POC Glucometer 110 Random Glucose 108 H Calcium 9.4 Urine Color Yellow Urine Appearance Clear Urine pH 5.0 Ur Specific [place] 1.014 Urine Protein Negative Urine Glucose (UA) Negative Urine Ketones Negative Urine Blood Negative Urine Nitrite Negative Urine Bilirubin Negative Urine Urobilinogen 0.2 Ur Leukocyte Esterase Negative Urine WBC (Auto) 1 Urine RBC (Auto) 0 Urine Casts (Auto) 0 U Epithel Cells (Auto) 1.8 Urine Bacteria (Auto) 45.54 HIV 1&2 Antibody Screen HIV P24 Antigen 06/23/18 06/24/18 16:35 06:51 Sodium Potassium Chloride Carbon Dioxide Anion Gap BUN Creatinine Creat Clearance w eGFR POC Glucometer 156 106 Random Glucose Calcium Urine Color Urine Appearance Urine pH Ur Specific [place] Urine Protein Urine Glucose (UA) Urine Ketones Urine Blood Urine Nitrite Urine Bilirubin Urine Urobilinogen Ur Leukocyte Esterase Urine WBC (Auto) Urine RBC (Auto) Urine Casts (Auto) U Epithel Cells (Auto) Urine Bacteria (Auto) HIV 1&2 Antibody Screen HIV P24 Antigen LABS NOTED A- POORLY CONTROLLED HTN P- GIVE LISINOPRIL 40 MG PO NOW START LISINOPRIL 10 MG DAILY STARTING 06/25/18 WILL CHANGE CLONIDINE TO 0.1 MG PO Q8H PRN CONT TO MONITOR CLINICALLY CONSIDER HYDRALAZINE IF UNCHANGED B/P PLAN DISCUSSED WITH CLIENT. AGREES TO CHANGES
[2018-06-24] MEDS ORDERED: LISINOPRIL 10 MG TABLET (FP) PO SCH (10:00)
[2018-06-24] MEDS ORDERED: cloNIDine HCL 0.1 MG TABLET PO SCH (10:00)
[2018-06-24] MEDS: BACITRACIN 0.9 GM PACKET TP SCH (10:11)
[2018-06-24] MEDS: PRENATAL VITAMINS W/ FOLIC ACID TABLET (FP) PO SCH (10:11)
[2018-06-24] MEDS: NICOTINE 14 MG/24 HOURS TOPICAL PATCH TD SCH (10:11)
[2018-06-24] MEDS: QUEtiapine FUMARATE 100 MG TABLET (FP) PO SCH (21:01)
[2018-06-24] MEDS: THIAMINE HCL 100 MG TABLET (FP) PO SCH (21:01)
[2018-06-24] MEDS: MELATONIN 5 MG TABLETS PO PRN (21:01)
[2018-06-25] MEDS: ASPIRIN COATED 81 MG TABLET.EC PO SCH (06:41)
[2018-06-25] MEDS: LOSARTAN POTASSIUM 25 MG TABLET PO SCH (06:41)
[2018-06-25] MEDS: PATIENT'S OWN MEDICATION (NON-FORMULARY) (Omeprazole [Omeprazole] 40 MG) PO SCH (06:41)
[2018-06-25] MEDS: PATIENT'S OWN MEDICATION (NON-FORMULARY) (Gabapentin [Gabapentin] 800 MG) PO SCH ×3 (06:41→21:32)
[2018-06-25] MEDS: cloNIDine HCL 0.1 MG TABLET PO PRN (06:42)
[2018-06-25] MEDS: ALBUTEROL SO4 8 GM HFA INHALER IH PRN (06:43)
[2018-06-25] MEDS: BACITRACIN 0.9 GM PACKET TP SCH (09:19)
[2018-06-25] MEDS: NICOTINE 14 MG/24 HOURS TOPICAL PATCH TD SCH (09:19)
[2018-06-25] MEDS: PRENATAL VITAMINS W/ FOLIC ACID TABLET (FP) PO SCH (09:20)
[2018-06-25] MEDS: LISINOPRIL 10 MG TABLET (FP) PO SCH (09:20)
[2018-06-25] MEDS: QUEtiapine FUMARATE 100 MG TABLET (FP) PO SCH (21:32)
[2018-06-25] MEDS: THIAMINE HCL 100 MG TABLET (FP) PO SCH (21:32)
[2018-06-25] MEDS: MELATONIN 5 MG TABLETS PO PRN (21:33)
[2018-06-26] MEDS: PATIENT'S OWN MEDICATION (NON-FORMULARY) (Gabapentin [Gabapentin] 800 MG) PO SCH (06:40)
[2018-06-26] MEDS: PATIENT'S OWN MEDICATION (NON-FORMULARY) (Omeprazole [Omeprazole] 40 MG) PO SCH (06:40)
[2018-06-26] MEDS: LOSARTAN POTASSIUM 25 MG TABLET PO SCH (06:41)
[2018-06-26] MEDS: cloNIDine HCL 0.1 MG TABLET PO PRN (06:41)
[2018-06-26] MEDS: ASPIRIN COATED 81 MG TABLET.EC PO SCH (06:41)
[2018-06-26] MEDS: ALBUTEROL SO4 8 GM HFA INHALER IH PRN (06:42)
[2018-06-26 07:19] VITALS: TEMP 97.4
[2018-06-26] MEDS ORDERED: PT OWN MED DRAWER 7, Y5N ONE (08:56)
[2018-06-26] MEDS: BACITRACIN 0.9 GM PACKET TP SCH (09:16)
[2018-06-26] MEDS: PRENATAL VITAMINS W/ FOLIC ACID TABLET (FP) PO SCH (09:16)
[2018-06-26] MEDS: LISINOPRIL 10 MG TABLET (FP) PO SCH (09:16)
[2018-06-26] MEDS: NICOTINE 14 MG/24 HOURS TOPICAL PATCH TD SCH (09:16)
--- NOTE | 2018-06-26 09:41 | PN ---
[facility] Progress Note Note: Patient is discharged today. Script for Seroquel 100 mg po HS is electronically transferred to [facility] at [address] [facility] , [place] [address]
[2018-06-26 10:08] VITALS: BP 137/84; PULSE 90
--- NOTE | 2018-06-26 11:21 | PN ---
[facility] Progress Note Note: PT COMPLETED REHAB AND DISCHARGED TODAY.PT MET WITH HER COUNSELOR, MS JEREZ TAWANA AND WAS REFERRED TO [facility]. PT REPORTS SHE HAS PRIMARY CARE PROVIDER, LULU EDUARDO ON [address] [place], [place],[id number] FOR MEDICAL MANAGEMENT. PT REPORTS SHE HAS OWN MEDS. ALSO REPORTS SHE HAS APPOINTMENT WITH RENAL DEPT TODAY WHERE SHE REPORTS SHE WILL BE GOING SOON SHE LEAVES THIS BUILDING. PT IS ALERT O X 3. DENIES S/H/I. Home Medications Medication Instructions Recorded Aspirin Coated [Ecotrin -] 81 mg PO DAILY 09/03/11 Fluticasone/Salmeterol [Advair 1 each IH BID 09/03/11 250-50 Diskus] Omeprazole 40 mg PO DAILY 09/03/11 Gabapentin 800 mg PO TID 06/16/18 Albuterol Sulfate Inhaler - 2 inh IH Q6H PRN #1 inhaler 06/18/18 [Ventolin HFA Inhaler -] Losartan Potassium 25 mg PO DAILY #30 tablet 06/18/18 Quetiapine Fumarate [Seroquel] 100 mg PO HS #30 tablet 06/26/18 Vital Signs (72 hours) 06/23/18 06/23/18 06/23/18 12:22 13:00 14:11 Temperature 97.9 F Pulse Rate 73 85 91 H Respiratory 20 18 22 H Rate Blood Pressure 182/136 H 170/100 169/107 H 06/23/18 06/23/18 06/24/18 15:58 21:44 00:30 Temperature Pulse Rate 82 90 Respiratory 18 18 Rate Blood Pressure 143/88 152/88 06/24/18 06/24/18 06/24/18 03:30 07:32 09:05 Temperature 97.4 F L Pulse Rate 70 85 Respiratory 18 18 18 Rate Blood Pressure 161/103 H 154/85 06/25/18 06/25/18 06/25/18 00:30 03:30 07:33 Temperature 97.1 F L Pulse Rate 70 Respiratory 18 18 16 Rate Blood Pressure 159/109 H 06/25/18 06/26/18 06/26/18 09:31 00:30 03:30 Temperature Pulse Rate 86 Respiratory 18 18 18 Rate Blood Pressure 134/83 06/26/18 06/26/18 07:18 10:00 Temperature 97.4 F L Pulse Rate 78 90 Respiratory 18 Rate Blood Pressure 164/105 H 137/84 Laboratory Tests 06/20/18 06/21/18 06/22/18 06:00 16:53 06:27 Sodium Potassium Chloride Carbon Dioxide Anion Gap BUN Creatinine Creat Clearance w eGFR POC Glucometer 142 105 Random Glucose Calcium Urine Color Urine Appearance Urine pH Ur Specific [place] Urine Protein Urine Glucose (UA) Urine Ketones Urine Blood Urine Nitrite Urine Bilirubin Urine Urobilinogen Ur Leukocyte Esterase Urine WBC (Auto) Urine RBC (Auto) Urine Casts (Auto) U Epithel Cells (Auto) Urine Bacteria (Auto) HIV 1&2 Antibody Screen Negative HIV P24 Antigen Negative 06/22/18 06/22/18 06/23/18 07:30 08:00 06:33 Sodium 140 Potassium 4.8 Chloride 108 H Carbon Dioxide 27 Anion Gap 5 L BUN 36 H Creatinine 1.3 Creat Clearance w eGFR 42.53 POC Glucometer 110 Random Glucose 108 H Calcium 9.4 Urine Color Yellow Urine Appearance Clear Urine pH 5.0 Ur Specific [place] 1.014 Urine Protein Negative Urine Glucose (UA) Negative Urine Ketones Negative Urine Blood Negative Urine Nitrite Negative Urine Bilirubin Negative Urine Urobilinogen 0.2 Ur Leukocyte Esterase Negative Urine WBC (Auto) 1 Urine RBC (Auto) 0 Urine Casts (Auto) 0 U Epithel Cells (Auto) 1.8 Urine Bacteria (Auto) 45.54 HIV 1&2 Antibody Screen HIV P24 Antigen 06/23/18 06/24/18 06/24/18 16:35 06:51 16:32 Sodium Potassium Chloride Carbon Dioxide Anion Gap BUN Creatinine Creat Clearance w eGFR POC Glucometer 156 106 146 Random Glucose Calcium Urine Color Urine Appearance Urine pH Ur Specific [place] Urine Protein Urine Glucose (UA) Urine Ketones Urine Blood Urine Nitrite Urine Bilirubin Urine Urobilinogen Ur Leukocyte Esterase Urine WBC (Auto) Urine RBC (Auto) Urine Casts (Auto) U Epithel Cells (Auto) Urine Bacteria (Auto) HIV 1&2 Antibody Screen HIV P24 Antigen PT WILL TAKE ALL COPIES OF LAB RESULT GIVEN TO HER TO HER PCP FOR MEDICAL FOLLOE UP/MANAGEMENT. NAD MEDICALLY STABLE PLAN:FOLLOW UP WITH CD/MEDICAL APPOINTMENTS RECOMMENDED ABOVE. All Active Problems Alcohol dependence< uncomplicated (Chronic) Asthma (Chronic) Essential (primary) hypertension (Chronic) GERD (gastroesophageal reflux disease) (Chronic) Neuropathy (Chronic) Nicotine dependence (Chronic) Type 2 diabetes mellitus (Chronic) Cannabis dependence, uncomplicated (Chronic) Cocaine dependence, uncomplicated (Chronic) Gait abnormality (Chronic)
== END 2018-06-26 10:26 | disposition home or self-care (01) | DRG 895 ==
LOC: YASAS 12:04 → Y3E 12:06
PROVIDERS: ADMIT Neuromusculoskeletal Medicine & OMM; ATTEND Neuromusculoskeletal Medicine & OMM
PROC: HZ42ZZZ Group Counseling for Substance Abuse Treatment, Cognitive-Behavioral (ICD-10-PCS; principal; 2018-06-19)
DX: F10.20 Alcohol dependence, uncomplicated (principal); F14.20 Cocaine dependence, uncomplicated; F20.0 Paranoid schizophrenia; F19.282 Other psychoactive substance dependence with psychoactive substance-induced sleep disorder; F12.20 Cannabis dependence, uncomplicated; F17.210 Nicotine dependence, cigarettes, uncomplicated; F19.24 Other psychoactive substance dependence with psychoactive substance-induced mood disorder; I10 Essential (primary) hypertension; J45.20 Mild intermittent asthma, uncomplicated; K21.9 Gastro-esophageal reflux disease without esophagitis; G62.9 Polyneuropathy, unspecified; E11.9 Type 2 diabetes mellitus without complications; R26.89 Other abnormalities of gait and mobility; N28.9 Disorder of kidney and ureter, unspecified; R22.43 Localized swelling, mass and lump, lower limb, bilateral; G40.909 Epilepsy, unspecified, not intractable, without status epilepticus; J34.0 Abscess, furuncle and carbuncle of nose; Z91.14 Patient's other noncompliance with medication regimen
CPT/HCPCS: 36415; 80048; 81003; 82962; 87389; 94640; J0735